=== PATIENT | male | born 1950 | race Caucasian/White ===

== ENCOUNTER 2021-01-01 09:37 | Day surgery (SDC) | payer MEDICARE, OTHER, SELFPAY ==
[~2021-01-01] VITALS: Ht 170.2 cm; Wt 59.0 kg
--- NOTE | 2021-01-01 10:11 | NUR ---
EKG COMPLETED ON ARRIVAL. PT PLACED ON ALL ROOM MONITORING. IV APPEALS REPRESENTATIVE IN R HAND, 2ND IV ESTABLISHED IN LAC. LABS DRAWN WITH START INCLUDING BC X 1. LAB MABLE 2ND BC. FAMILY AT BS. AWAITING LAB RESULTS AND CT. CALL LIGHT WITHIN REACH.
[2021-01-01 10:28] LABS: BASOPHILS % (AUTO) 0 % (0-1); EOSINOPHILS % (AUTO) 0 % (1-7); LYMPHOCYTES % (AUTO) 12 % (22-44); MEAN CORPUSCULAR HEMOGLOBIN 32.1 pg (27.5-34.5); MEAN CORPUSCULAR HGB CONC 33.3 g/dL (33.2-36.2); MEAN PLATELET VOLUME 10.1 fL (7.4-10.4); MONOCYTES % (AUTO) 8 % (2-9); NEUTROPHILS % (AUTO) 79 % (42-75); PLATELET COUNT 212 x10^3/uL (130-400); RED CELL DISTRIBUTION WIDTH 14.9 % (9.4-14.8)
[2021-01-01 10:30] LABS: MD NO
[2021-01-01 10:35] LABS: ALANINE AMINOTRANSFERASE 92 U/L (12-78); ALBUMIN 4.4 g/dL (3.4-5.0); ANION GAP 19 mmol/L (5-15); CALCIUM 9.7 mg/dL (8.5-10.1); CHLORIDE 106 mmol/L (98-107); CREATININE 2.38 mg/dL (0.7-1.3)
[2021-01-01] MEDS ORDERED: ONDANSETRON 2MG/ML, 2ML ONE (10:50)
[2021-01-01] MEDS ORDERED: MORPHINE SULFATE 4 MG/ML, 1ML ONE (10:51)
[2021-01-01 10:52] LABS: ALKALINE PHOSPHATASE 97 U/L (45-117); BILIRUBIN,TOTAL 0.8 mg/dL (0.2-1.0); TOTAL PROTEIN 8.7 g/dL (6.4-8.2)
--- NOTE | 2021-01-01 10:55 | NUR ---
PAIN TO BACK WORSENING. ORDERS FOR MEDICATION OBTAINED FROM ERP AND GIVEN TO PT FOR PAIN RATED 10/10 TO BACK AND BILATERAL SHOULDERS. REVIEW OF LABS. MULTIPLE ABNORMAL LABS, PINK SHEET STARTED.
[2021-01-01] MEDS ORDERED: ONDANSETRON 2MG/ML, 2ML IVPush ONE (11:00)
[2021-01-01] MEDS ORDERED: MORPHINE SULFATE 4 MG/ML, 1ML IVPush PRN (11:00)
[2021-01-01] MEDS ORDERED: ASPIRIN 325 MG TABLET PO ONE (11:14)
--- NOTE | 2021-01-01 11:14 | NUR ---
REVIEW OF NEW ORDERS. CTA CANCELLED, AWAITING HEPARIN VERIFICATION BY PHARMACY
--- NOTE | 2021-01-01 11:20 | NUR ---
SCALE WEIGHT OBTAINED, REPORTED TO PHARMACY.
[2021-01-01] MEDS ORDERED: HEPARIN 5,000 UNITS/ML, 1ML IV ONE (11:30)
[2021-01-01] MEDS ORDERED: HEPARIN 5,000 UNITS/ML, 1ML IV PRN (11:30)
[2021-01-01] MEDS ORDERED: HEPARIN 25,000 UNITS/250ML PMX 250 ML IV PRN (11:30)
--- NOTE | 2021-01-01 11:34 | NUR ---
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 PT PREPPED FOR MULTI OPERATION FORMING MACHINE SETTER, DR AYERS READY FOR PT TO BE TRANSPORTED.
[2021-01-01] MEDS ORDERED: VERAPAMIL 2.5 MG/ML, 2ML ONE (11:41)
[2021-01-01] MEDS ORDERED: BIVALIRUDIN 250 MG ONE (11:41)
[2021-01-01] MEDS ORDERED: MIDAZOLAM 1 MG/ML, 5ML ONE (11:41)
[2021-01-01] MEDS ORDERED: FENTANYL PF 100 MCG/2ML ONE (11:41)
[2021-01-01] MEDS ORDERED: TICAGRELOR 90 MG TABLET ONE (11:41)
[2021-01-01] MEDS ORDERED: HEPARIN 1,000 UNITS/ML, 10ML ONE ×3 (11:42→13:29)
[2021-01-01] MEDS ORDERED: LIDOCAINE 2%, 20ML ONE (11:42)
--- NOTE | 2021-01-01 11:54 | NUR ---
PER ERP, NO ORDERS OR TREATMENT FOR SEPSIS. 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 PT TO MANAGER OF DIGITAL.
[2021-01-01 11:55] VITALS: BP 88/62
[2021-01-01] MEDS ORDERED: DEXMEDETOMIDINE 200 MCG in SODIUM CHLORIDE 0.9% 48 ML IV PRN (12:30)
[2021-01-01] MEDS ORDERED: VANCOMYCIN 900 MG in SODIUM CHLORIDE 0.9% 250 ML IV PRN (12:30)
[2021-01-01] MEDS ORDERED: CEFUROXIME 1.5 GM in SODIUM CHLORIDE 0.9% 50 ML IVPB PRN (12:30)
[2021-01-01] MEDS ORDERED: PHENYLEPHRINE 50 MG in SODIUM CHLORIDE 0.9% 245 ML IV PRN (12:30)
[2021-01-01] MEDS ORDERED: REGULAR INSULIN 100 UNITS in SODIUM CHLORIDE 0.9% 99 ML IV PRN (12:30)
[2021-01-01] MEDS ORDERED: EPINEPHRINE 5 MG in SODIUM CHLORIDE 0.9% 245 ML IV PRN (12:30)
[2021-01-01] MEDS ORDERED: MANNITOL PMX 20% 500 ML IVPB PRN (12:30)
[2021-01-01] MEDS ORDERED: ALBUMIN HUMAN 5% 500 ML IV PRN (12:30)
[2021-01-01] MEDS ORDERED: HEPARIN 25,000 UNITS/250ML PMX 250 ML ONE (13:22)
[2021-01-01] MEDS ORDERED: PHENYLEPHRINE 10 MG/ML ONE (13:22)
[2021-01-01] MEDS ORDERED: PAPAVERINE 30 MG/ML, 2ML ONE (13:29)
[2021-01-01] MEDS ORDERED: POTASSIUM CHLORIDE 80 MEQ, SODIUM BICARBONATE 8.4% 10 MEQ, MAGNESIUM SULFATE 0.5 GM, LI... IV PRN (13:30)
[2021-01-01] MEDS ORDERED: FENTANYL PF 250 MCG/5ML ONE ×4 (13:30→13:31)
[2021-01-01] MEDS ORDERED: MIDAZOLAM 10MG/2 ML ONE (13:30)
[2021-01-01] MEDS ORDERED: HEPARIN IV PRN (15:00)
[2021-01-01] MEDS ORDERED: HEPARIN 25,000 UNITS in DEXTROSE 10% 500 ML IV SCH (15:00)
[2021-01-01] MEDS ORDERED: SODIUM CHLORIDE 0.45% IV PRN (15:00)
[2021-01-01] MEDS ORDERED: HEPARIN 25,000 UNITS in DEXTROSE 20% 500 ML IV SCH (15:00)
[2021-01-01] MEDS ORDERED: HEPARIN 25,000 UNITS in DEXTROSE 5% 500 ML IV SCH (15:00)
[2021-01-01] MEDS ORDERED: ROCURONIUM 10MG/ML,5ML ONE ×2 (15:21)
[2021-01-01] MEDS ORDERED: PROPOFOL 10 MG/ML, 20ML ONE (15:21)
[2021-01-01] MEDS ORDERED: AMINOCAPROIC ACID 250 MG/ML, 20ML ONE ×2 (15:21)
[2021-01-01] MEDS ORDERED: PROTAMINE SULFATE 10 MG/ML, 25ML ONE ×2 (15:21)
[2021-01-01] MEDS ORDERED: NOVOSEVEN RT (FACTOR VIIA) RECOMB 1,000 MCG IVPush ONE (17:30)
[2021-01-01] MEDS ORDERED: ALBUMIN HUMAN 25% 50 ML ONE (18:44)
[2021-01-01] MEDS ORDERED: LIDOCAINE-MPF 2% ,5ML ONE (18:44)
[2021-01-01] MEDS ORDERED: SODIUM BICARB 8.4%, 50ML SYRINGE ONE (18:44)
[2021-01-01] MEDS ORDERED: SODIUM BICARBONATE 1 MEQ/ML, 50ML VIAL ONE (18:44)
[2021-01-01] MEDS ORDERED: CALCIUM CHLORIDE 10%, 10ML SYR ONE (18:44)
[2021-01-01] MEDS ORDERED: HEPARIN 1,000 UNITS/ML, 30ML ONE (18:44)
== END 2021-01-01 17:58 | disposition expired ==
LOC: ED 11:28 → EDSTATUS 14:09 → EDIP 16:52 → UNDOADMIN 16:52 → OUT 16:52 → UNDODISIN 17:58 → OUT 17:58 → EDIP 18:01 → CCU 18:01 → UNDODISIN 01-02 04:03
PROVIDERS: ATTEND Internal Medicine Cardiovascular Disease
DX: I21.9 Acute myocardial infarction, unspecified (principal); I25.10 Atherosclerotic heart disease of native coronary artery without angina pectoris; I24.9 Acute ischemic heart disease, unspecified; I11.0 Hypertensive heart disease with heart failure; I50.9 Heart failure, unspecified; E78.5 Hyperlipidemia, unspecified; N17.9 Acute kidney failure, unspecified; D68.9 Coagulation defect, unspecified; F17.210 Nicotine dependence, cigarettes, uncomplicated
CPT/HCPCS: 33990; 36415; 80053; 82330; 82803; 82947; 83605; 83880; 84132; 84145; 84295; 84484; 85014; 85025; 85347; 85520; 86850; 86900; 86923; 87040; 92920; 93005; 93312; 93460; 96374; 96375; 99156; 99157; 99291; C1725; C1751; C1760; C1769; C1874; C1887; C1894; J0171; J0583; J0697; J1644; J1815; J2250; J2270; J2370; J2405; J2440; J2704; J2720; J3010; J3370; J3475; J3480; J7050; P9016; P9017; P9035; P9047; Q9967; G0378; J7189; P9045